=== PATIENT | female | born 1930 | race Caucasian/White ===

== ENCOUNTER 2019-10-08 18:53 | Emergency (ER) | payer OTHER ==
[~2019-10-08] VITALS: Ht 152.4 cm; Wt 47.6 kg
[2019-10-08] MEDS ORDERED: ZANTAC 7575 MG (19:23)
[2019-10-08] MEDS ORDERED: LOSARTAN POTAS100 MG (19:23)
[2019-10-08] MEDS ORDERED: HYDRALAZINE HCL25 MG (19:23)
[2019-10-08] MEDS ORDERED: ARICEPT5 MG (19:23)
[2019-10-08] MEDS ORDERED: SYNTHROID75 MCG (19:23)
[2019-10-08] MEDS ORDERED: TOPROL XL50 M1 (19:23)
== END 2019-10-09 05:41 | disposition home or self-care (01) ==
LOC: ER 18:53
DX: R07.89 Other chest pain (principal); R42 Dizziness and giddiness